=== PATIENT | female | born 1980 | race Caucasian/White ===

== ENCOUNTER → 2016-12-10 | Outpatient (CLI) | payer BC ==
--- NOTE | 2016-12-11 06:49 | US ---
EXAMINATION TYPE: US pelvis complete transvag DATE OF EXAM: 12/10/2016 6:08 PM COMPARISON: Previous study dated 07/04/2013. CLINICAL HISTORY: Pelvic Pain R10.2. Pelvic pain, bloating TECHNIQUE: Transvaginal (TV) and Transabdominal (TA) Date of LMP: 11/16/2016 EXAM MEASUREMENTS: Uterus: 9.5 x 5.0 x 7.0 cm Endometrial Stripe: 1.5 cm Right Ovary: 4.7 x 2.7 x 4.1 cm Left Ovary: 3.4 x 1.9 x 2.8 cm 1. Uterus: Anteverted wnl 2. Endometrium: ?thickened for pt's cycle 3. Right Ovary: Probable hemorrhagic cyst= 2.9 x 2.6 x 3.1 cm 4. Left Ovary: wnl, follicles 5. Bilateral Adnexa: wnl 6. Posterior cul-de-sac: wnl IMPRESSION: 2.9 CM COMPLEX CYST WITHIN THE RIGHT OVARY. SHORT-TERM FOLLOW-UP MAY BE WORTHWHILE.
== END | disposition home or self-care (01) ==
LOC: RADUSMAIN 17:49
PROVIDERS: ATTEND Obstetrics & Gynecology
DX: N83.201 Unspecified ovarian cyst, right side (principal)
CPT/HCPCS: 76830; 76856

== ENCOUNTER 2016-12-28 16:19 | Emergency (ER) | payer BC ==
[2016-12-28 16:32] VITALS: BP 146/86; PULSE 62; RESP 18; TEMP 98.1
--- NOTE | 2016-12-28 16:43 | ED ---
General Adult HPI - General Chief complaint: Back Pain/Injury Stated complaint: Back Pain Time Seen by Provider: 12/28/16 16:33 Source: patient, RN notes reviewed Mode of arrival: ambulatory Limitations: physical limitation - History of Present Illness Initial comments: Patient 36-year-old female who presents emergency room today with a chief complaint of exacerbation of chronic pain. She does admit to having history of problems with her sciatic nerve. She believes she slept wrong. She states having increased pain right side and lower back that radiates on the right leg approximately alf down mid thigh. She denies any bowel or bladder incontinence or retention. Denies any saddle anesthesia. Denies any other complaints associated symptoms. Patient denies any recent fever, chills, shortness of breath, chest pain, abdominal pain, nausea or vomiting, dysuria or hematuria, constipation or diarrhea, headaches or visual changes, or any other complaints. - Related Data Previous Rx's Medication Instructions Recorded traMADol HCl [Ultram] 50 mg PO Q4H PRN #20 tab 05/27/14 Cyclobenzaprine [Flexeril] 10 mg PO TID #20 tab 12/28/16 Dexamethasone 0.75 mg PO DIRECTED #12 tablet 12/28/16 Naproxen 500 mg PO Q12HR 14 Days 12/28/16 Allergies Allergy/AdvReac Type Severity Reaction Status Date / Time Penicillins AdvReac Unknown Verified 12/28/16 16:28 Review of Systems ROS Statement: Those systems with pertinent positive or pertinent negative responses have been documented in the HPI. ROS Other: All systems not noted in ROS Statement are negative. Past Medical History Past Medical History: No Reported History History of Any Multi-Drug Resistant Organisms: None Reported Past Surgical History: Orthopedic Surgery Additional Past Surgical History / Comment(s): MARYANA KNEE; D&C Past Anesthesia/Blood Transfusion Reactions: No Reported Reaction Past Psychological History: No Psychological Hx Reported Smoking Status: Current every day smoker Past Alcohol Use History: None Reported Past Drug Use History: Marijuana Additional Drug Use History / Comment(s): DAILY USE, INSTRUCTED NOT TO USE 24 HOURS PRIOR TO PROCEDURE General Exam - General Exam Comments Initial Comments: General: The patient is awake and alert, in no distress, and does not appear acutely ill. Eye: Pupils are equal, round and reactive to light, extra-ocular movements are intact. No nystagmus. There is normal conjunctiva bilaterally. No signs of icterus. Ears, nose, mouth and throat: There are moist mucous membranes and no oral lesions. Neck: The neck is supple, there is no tenderness or JVD. Cardiovascular: There is a regular rate and rhythm. No murmur, rub or gallop is appreciated. Respiratory: Lungs are clear to auscultation, respirations are non-labored, breath sounds are equal. No wheezes, stridor, rales, or rhonchi. Musculoskeletal: Normal ROM. Normal appearance of thoracic, lumbar spine. No step-offs or is appreciated. Mild tenderness lower lumbar from L3 to L4. Patient does have tenderness over the SI joint on the right. Increased paravertebral tenderness on the right side of the lower lumbar. Strength 5/5. Sensation intact. Pulses equal bilaterally 2+. Neurological: A&O x 3. CN II-XII intact, There are no obvious motor or sensory deficits. Coordination appears grossly intact. Speech is normal. Skin: Skin is warm and dry and no rashes or lesions are noted. Psychiatric: Cooperative, appropriate mood & affect, normal judgment. Limitations: physical limitation Course Vital Signs 12/28/16 16:28 Temperature 98.1 F Pulse Rate 62 Respiratory 18 Rate Blood Pressure 146/86 O2 Sat by Pulse 98 Oximetry Medical Decision Making - Medical Decision Making Patient will be treated with anti-inflammatories, steroids, muscle relaxer. Advised that muscle laxer mainly drowsy. Advised follow-up the family doctor symptoms persist for further evaluation possible MRI. Patient advised return to emergency room if any symptoms increase or worsen or for any other concerns. Disposition Clinical Impression: Acute low back pain Disposition: HOME SELF-CARE Condition: Good Instructions: Acute Low Back Pain (ED) Additional Instructions: Please use medication as discussed. Please be aware the muscle relaxant may make you drowsy. Please follow-up with family doctor in the next 2 days of symptoms have not improved. Please return to emergency room if the symptoms increase or worsen or for any other concerns. Prescriptions: Cyclobenzaprine [Flexeril] 10 mg PO TID #20 tab Dexamethasone 0.75 mg PO DIRECTED #12 tablet Naproxen 500 mg PO Q12HR 14 Days Time of Disposition: 16:42
== END 2016-12-28 16:50 | disposition home or self-care (01) ==
LOC: EC 16:19
DX: M54.5 Low back pain (principal); F17.200 Nicotine dependence, unspecified, uncomplicated; Z88.0 Allergy status to penicillin
CPT/HCPCS: 99283

== ENCOUNTER 2017-01-03 14:43 | Emergency (ER) | payer BC ==
[2017-01-03 15:15] VITALS: BP 122/71; PULSE 83; RESP 18; TEMP 98.3
[2017-01-03] MEDS ORDERED: ORPHENADRINE 30 MG/ML 2 ML VIAL IM STA (15:42)
[2017-01-03] MEDS ORDERED: KETOROLAC 60 MG/2 ML VIAL IM STA (15:42)
--- NOTE | 2017-01-03 15:51 | ED ---
Back Pain HPI - General Chief Complaint: Back Pain/Injury Stated Complaint: back pain Source: patient, RN notes reviewed Limitations: no limitations - History of Present Illness Initial Comments: 36-year-old female presents to the emergency department with the chief complaint back pain. Patient has chronic back pain. Patient states she was seen here a week ago she started on naproxen steroids and Flexeril. Patient states that she continues to have the pain after working in the yard yesterday seemed to worsen so she was concerned. Patient denies any loss of bowel or bladder function. Patient states she went to work and just continues to feel stiff. Patient states she has time to rest from her pain. Patient states is not like her typical pain. There is no loss of bowel or bladder function or no saddle anesthesia. Patient states she was concerned due to the continued pain and the fact that it will worsen so she thought that she should be seen.Patient denies any recent fever, chills, shortness of breath, chest pain, abdominal pain , nausea vomiting, numbness or tingling, dysuria or hematuria, constipation or diarrhea, headaches or visual changes, or any other current symptoms. - Related Data Home Medications Medication Instructions Recorded Confirmed Cyanocobalamin [Vitamin B-12] 500 mcg PO DAILY 01/03/17 01/03/17 Cyclobenzaprine [Flexeril] 10 mg PO TID PRN 01/03/17 01/03/17 Multivit with Calcium,Iron,Min 1 tab PO DAILY 01/03/17 01/03/17 [Women's Multivitamin] Naproxen 500 mg PO Q12HR PRN 01/03/17 01/03/17 Previous Rx's Medication Instructions Recorded Naproxen 500 mg PO Q12HR #20 tab 01/03/17 Orphenadrine [Norflex] 100 mg PO Q12H #10 tablet.er 01/03/17 Allergies Allergy/AdvReac Type Severity Reaction Status Date / Time Penicillins Allergy Unknown Verified 01/03/17 15:40 Review of Systems ROS Statement: Those systems with pertinent positive or pertinent negative responses have been documented in the HPI. ROS Other: All systems not noted in ROS Statement are negative. Past Medical History Past Medical History: No Reported History Additional Past Medical History / Comment(s): chronic back pain History of Any Multi-Drug Resistant Organisms: None Reported Past Surgical History: Orthopedic Surgery Additional Past Surgical History / Comment(s): MARYANA KNEE; D&C Past Anesthesia/Blood Transfusion Reactions: No Reported Reaction Past Psychological History: No Psychological Hx Reported Smoking Status: Current every day smoker Past Alcohol Use History: None Reported Past Drug Use History: Marijuana Additional Drug Use History / Comment(s): DAILY USE, INSTRUCTED NOT TO USE 24 HOURS PRIOR TO PROCEDURE General Exam Limitations: no limitations General appearance: alert, in no apparent distress Head exam: Present: atraumatic, normocephalic, normal inspection Neck exam: Present: normal inspection. Absent: tenderness, meningismus, lymphadenopathy Respiratory exam: Present: normal lung sounds bilaterally. Absent: respiratory distress, wheezes, rales, rhonchi, stridor Cardiovascular Exam: Present: regular rate, normal rhythm, normal heart sounds. Absent: systolic murmur, diastolic murmur, rubs, gallop, clicks Back exam: Present: normal inspection, full ROM. Absent: tenderness, paraspinal tenderness, vertebral tenderness Neurological exam: Present: alert, oriented X3 Skin exam: Present: warm, dry, intact, normal color. Absent: rash Course Vital Signs 01/03/17 15:12 Temperature 98.3 F Pulse Rate 83 Respiratory 18 Rate Blood Pressure 122/71 O2 Sat by Pulse 98 Oximetry Medical Decision Making - Medical Decision Making 36-year-old female presents for flareup of her chronic back pain after lifting in the ER. At this time we discussed will give her Norflex as well as Motrin to help with the pain. We discussed follow-up with a back specialist and to give her on-call or thrill information. Discussed return parameters. Patient stated that she needs. She will be discharged. Disposition Clinical Impression: Acute low back pain Disposition: HOME SELF-CARE Condition: Stable Instructions: Acute Low Back Pain (ED) Additional Instructions: Please use medication as discussed. Please follow up with family doctor if symptoms have not improved over the next two days. Please return to the emergency room if your symptoms increase or worsen or for any other concerns. Prescriptions: Naproxen 500 mg PO Q12HR #20 tab Orphenadrine [Norflex] 100 mg PO Q12H #10 tablet.er Referrals: John Wagoner DO [Primary Care Provider] - 1-2 days Silva Min DO [Doctor of Osteopathic Medicine] - 1-2 days Time of Disposition: 15:50
== END 2017-01-03 16:05 | disposition home or self-care (01) ==
LOC: EC 14:43
DX: M54.5 Low back pain (principal); G89.29 Other chronic pain; F17.200 Nicotine dependence, unspecified, uncomplicated; Z79.899 Other long term (current) drug therapy; Z88.0 Allergy status to penicillin
CPT/HCPCS: 99283; 96372 ×2; J2360; J1885

== ENCOUNTER → 2017-02-05 | Outpatient (CLI) | payer BC ==
[2017-02-05 12:50] LABS: CH 32.1; CHCM 33.5; HCT 40.3 % (34.0-46.0); HDW 2.19; HGB 13.7 gm/dL (11.4-16.0); MCH 32.8 pg (25.0-35.0); MCV 96.2 fL (80.0-100.0); Mean Platelet Volume 7.4; RBC 4.18 m/uL (3.80-5.40); RDW 12.3 % (11.5-15.5); WBC 9.1 k/uL (3.8-10.6)
[2017-02-05 12:53] LABS: Appearance,Urine Clear (Clear); Bilirubin,Urine Negative (Negative); Glucose,Urine (UA) Negative (Negative); Ketones,Urine Negative (Negative); Leukocyte Esterase,Urine Negative (Negative); Nitrite,Urine Negative (Negative); PH, Urine 5.5 (5.0-8.0); Protein,Urine Negative (Negative); Specific Gravity,Urine 1.015 (1.001-1.035); UA Billing (MACRO vs. MICRO) CHEM; Urobilinogen,Urine <2.0 mg/dL (<2.0)
[2017-02-05 13:14] LABS: ALT 19 U/L (9-52); AST 20 U/L (14-36); Alkaline Phosphatase 56 U/L (38-126); Anion Gap 7 mmol/L; Blood Urea Nitrogen 12 mg/dL (7-17); Calcium 9.6 mg/dL (8.4-10.2); Carbon Dioxide 27 mmol/L (22-30); Chloride 107 mmol/L (98-107); Cholesterol 159 mg/dL (<200); Glucose 83 mg/dL (74-99); HDL Cholesterol 77 mg/dL (40-60); Non-African American GFR(MDRD) >60 (>60 ml/min/1.73 sqM); Potassium 4.3 mmol/L (3.5-5.1); Sodium 141 mmol/L (137-145); Total Bilirubin 0.9 mg/dL (0.2-1.3); Total Protein 7.6 g/dL (6.3-8.2); Triglycerides 58 mg/dL (<150)
== END | disposition home or self-care (01) ==
LOC: LABMAIN 12:18
PROVIDERS: ATTEND Family Medicine
DX: Z00.00 Encounter for general adult medical examination without abnormal findings (principal)
CPT/HCPCS: 36415; 80053; 80061; 81003; 84443; 85027

== ENCOUNTER → 2017-04-04 | Outpatient (CLI) | payer BC ==
[2017-04-04 15:01] LABS: Basophils % (A) 0 %; CH 32.2; CHCM 33.2; Eosinophils # (A) 0.1 k/uL (0-0.7); Eosinophils % (A) 2 %; HCT 39.2 % (34.0-46.0); HDW 2.11; Luc # (Auto) 0.13; Luc % (Auto) 2; Lymphocytes # (A) 2.6 k/uL (1.0-4.8); Lymphocytes % (A) 32 %; MCH 32.4 pg (25.0-35.0); MCHC 33.2 g/dL (31.0-37.0); MCV 97.6 fL (80.0-100.0); Mean Platelet Volume 7.8; Monocytes # (A) 0.4 k/uL (0-1.0); Monocytes % (A) 5 %; Neutrophils # (A) 4.8 k/uL (1.3-7.7); Neutrophils % (A) 59 %; RBC 4.02 m/uL (3.80-5.40); RDW 12.8 % (11.5-15.5); WBC 8.1 k/uL (3.8-10.6); WBC (Perox) 8.51
[2017-04-04 15:09] LABS: Anion Gap 8 mmol/L; Blood Urea Nitrogen 18 mg/dL (7-17); Calcium 9.3 mg/dL (8.4-10.2); Carbon Dioxide 27 mmol/L (22-30); Chloride 108 mmol/L (98-107); Glucose 90 mg/dL (74-99); Non-African American GFR(MDRD) >60 (>60 ml/min/1.73 sqM); Sodium 143 mmol/L (137-145)
== END | disposition home or self-care (01) ==
LOC: LABPAT 14:32
PROVIDERS: ATTEND Obstetrics & Gynecology
DX: Z01.812 Encounter for preprocedural laboratory examination (principal)
CPT/HCPCS: 36415; 80048; 85025

== ENCOUNTER 2017-04-11 05:45 | Observation (INO) | payer BC ==
[2017-04-01 14:42] VITALS: BMI 19.9
--- NOTE | 2017-04-10 20:25 | P.HPOB ---
History of Present Illness H&P Date: 04/10/17 Chief Complaint: Uterine prolapse, pelvic pain This is a 36 y.o. female, 7, para 5, who presents for total vaginal hysterectomy with possible posterior colporrhaphy, possible total abdominal hysterectomy with possible bilateral salpingooophorectomy due to pelvic pain with prolapse symptoms. She complains of pelvic pain, dyspareunia, groin pain, and constipation. Her symptoms have worsened for several years now. Pelvic ultrasound showed uterus measuring 8.4 x 5.9 x 4.9 cm. Her left ovary did have a complex mass measuring 4.1 cm. Endometrium measured 1.5 cm. Her right ovary only showed a small simple cyst, but 2 months earlier, she had a complex cyst on the right, and no cyst on the left. She did have a recent colposcopy that did show DEBORAH I. OB Hx: . Hx 5 vaginal deliveries. Hx of [address] [employer] Inspector Hx: No hx STDs. Recent pap showed ASCUS, cannot rule out HGSIL, with neg HR HPV. Colposcopy showed DEBORAH I. Social hx: Single. Factory work. Review of Systems Constitutional: Reports fatigue, Reports weight loss Eyes: denies blurred vision, denies pain Ears, nose, mouth and throat: Denies headache, Denies sore throat Cardiovascular: Denies chest pain, Denies shortness of breath Respiratory: Denies cough Gastrointestinal: Reports constipation Genitourinary: Reports dysmenorrhea, Reports dyspareunia, Reports pelvic pain, Reports prolapse symptoms, Reports stress incontinence (occ) Menstruation: Reports menses 1-7 days Musculoskeletal: Reports low back pain, Reports myalgias Integumentary: Denies pruritus, Denies rash Neurological: Denies numbness, Denies weakness Psychiatric: Reports anxiety, Reports depression, Reports difficulty concentrating, Reports insomnia, Reports irritability Hematologic/Lymphatic: Reports easy bruising Past Medical History Past Medical History: Osteoarthritis (OA) Additional Past Medical History / Comment(s): states "enlarged uterus and precancerous cells present",urinary leakage,chronic back pain History of Any Multi-Drug Resistant Organisms: None Reported Past Surgical History: Orthopedic Surgery Additional Past Surgical History / Comment(s): MARYANA KNEE arthroscopy; D&C Past Anesthesia/Blood Transfusion Reactions: No Reported Reaction Past Psychological History: Anxiety, Depression Smoking Status: Current every day smoker Past Alcohol Use History: Occasional Past Drug Use History: None Reported - Past Family History Mother Family Medical History: No Reported History Father History Unknown: Yes Medications and Allergies Home Medications Medication Instructions Recorded Confirmed Type Naproxen Sod/Diphenhydramine 1 each PO HS 04/01/17 04/11/17 History [Aleve Pm Caplet] Allergies Allergy/AdvReac Type Severity Reaction Status Date / Time Penicillins Allergy Unknown Verified 04/01/17 14:30 Childhood Exam Osteopathic Statement: *. No significant issues noted on an osteopathic structural exam other than those noted in the History and Physical/Consult. HEENT: within normal limits Heart: regular rate and rhythm Lungs: clear to auscultation bilaterally Abdomen: soft, non-tender Pelvic exam: Grade 2 uterine prolapse with uterine tenderness. No adnexal masses palpated, tender bilaterally. Grade 1 rectocele noted. No cystocele. Extremities: Neg. Sarah's. Assessment and Plan (1) Pelvic pain Status: Acute (2) Uterine prolapse Status: Acute Plan: Proceed with total vaginal hysterectomy with possible posterior vaginal colporrhaphy, possible total abdominal hysterectomy with possible bilateral salpingooophorectomy. I have discussed the risks, benefits, and alternative therapies for the above- mentioned procedure and for both sedation/anesthesia as well as necessary blood products administration, if indicated, as they pertain to this patient. The patient has indicated her understanding and acceptance of the risks and procedures discussed.
[~2017-04-11 05:45] MED LIST: DEXAMETHASONE SOD PHOSPHATE 10 MG/ML 1 ML VIAL IV ONE; LACTATED RINGERS 1,000 ML IV SCH; LIDOCAINE 1% 20 ML VIAL (10MG/ML) FOR IV START INTRADERMA PRN; MIDAZOLAM 2 MG/2 ML VIAL IV PRN; ONDANSETRON 4 MG/2 ML VIAL IVP ONE; SCOPOLAMINE 1.5MG/72HR PATCH TRANSDERM ONE; ceFAZolin 2 GM in SODIUM CHLORIDE 0.9% 100 ML IVPB ONE
[2017-04-11] MEDS ORDERED: MIDAZOLAM 2 MG/2 ML VIAL ONE (07:40)
[2017-04-11] MEDS ORDERED: PROPOFOL 10 MG/ML 20 ML VIAL IV ONE (07:40)
[2017-04-11] MEDS ORDERED: KETOROLAC 30 MG/ML 1 ML VIAL ONE (07:40)
[2017-04-11] MEDS ORDERED: fentaNYL (PF) 50 MCG/ML 2 ML AMP ONE (07:40)
[2017-04-11] MEDS ORDERED: BACITRACIN 500 UNIT/GM OINT 28.4 GM TUBE TOPICAL ONE (08:09)
[2017-04-11] MEDS ORDERED: EPINEPHrine 1 MG/ML 1 ML AMP IV ONE (08:09)
--- NOTE | 2017-04-11 08:50 | P.OP ---
Date of Procedure: 04/11/17 Preoperative Diagnosis: Pelvic pain, uterine prolapse Postoperative Diagnosis: Same Procedure(s) Performed: Total vaginal hysterectomy Implants: Anesthesia: spinal (Duramorph) Surgeon: Gail Ivory Feltmaker #1: Valeriano Bustamante Estimated Blood Loss (ml): 100 Pathology: other (Uterus with cervix) Condition: stable Disposition: floor Indications for Procedure: This is a 36 y.o. female, 7, para 5, who presents for total vaginal hysterectomy with possible posterior colporrhaphy, possible total abdominal hysterectomy with possible bilateral salpingooophorectomy due to pelvic pain with prolapse symptoms. She complains of pelvic pain, dyspareunia, groin pain, and constipation. Her symptoms have worsened for several years now. Pelvic ultrasound showed uterus measuring 8.4 x 5.9 x 4.9 cm. Her left ovary did have a complex mass measuring 4.1 cm. Endometrium measured 1.5 cm. Her right ovary only showed a small simple cyst, but 2 months earlier, she had a complex cyst on the right, and no cyst on the left. She did have a recent colposcopy that did show DEBORAH I. Operative Findings: Approximately grade 2 uterine prolapse is noted. No upper she will cystocele or rectocele was noted after removal of the uterus. The right ovary was visualized and did have a small simple-appearing cyst noted. The left ovary was not completely visualized but by palpation no masses were palpated. Uterus was average size with no visible fibroids. Description of Procedure: The patient is taken the operating room where she is placed in the dorsal lithotomy position. She is prepped and draped in the normal sterile fashion. Next a weighted speculum was placed in the patient's vagina and a right angle retractor was used to visualize the cervix. The anterior lip of the cervix is grasped with a single-tooth tenaculum. Next the cervix was circumferentially injected with one amp of epinephrine to 150 mL of normal saline. Next the cervix was circumscribed with a scalpel. The vaginal mucosa was pushed away from the cervix with a sponge. Next the uterosacral ligaments are clamped on either side with a Misti clamp, cut with Cedeno scissors, and then sutured with 0 Vicryl suture in a Misti transfixion stitch and then held on either side with a straight hemostat. Next the posterior peritoneal reflection was identified and entered sharply with Cedeno scissors. The edges of the vaginal mucosa was then tagged with 0 Vicryl suture and held with a curved hemostat for identification. Next a longbilled weighted speculum was placed through the posterior peritoneal reflection. Next the cardinal ligaments were clamped on either side with Misti clamps, cut with Cedeno scissors, and then sutured with 0 Vicryl suture in Misti transfixion stitches and cut. Next the vesicouterine peritoneum reflection is identified and entered sharply with Metzenbaum scissors. A right angle bladder retractor is then used to retract the bladder. The uterine arteries are clamped on either side with Misti clamps, cut with Cedeno scissors, and then sutured with 0 Vicryl suture in Misti transfixion stitches. The round ligament is also clamped on either side with a Misti clamp , cut with Cedeno scissors, and sutured with 0 Vicryl suture in Misti transfixion stitches. Next the uterine ovarian ligament and tube were clamped on either side with a Misti clamp, cut with Cedeno scissors, and then sutured with 0 Vicryl suture in a [id number] stitch, flashed, and then free tied with another suture of 0 Vicryl suture. These pedicles were held with a straight Cici for identification. The uterus is removed from the field. Excellent hemostasis is noted. Next the peritoneum is closed with 0 Vicryl suture in a pursestring fashion incorporating all the held ligaments. Both tubes are visualized and appeared normal. The right ovary is visualized and appears slightly enlarged with a simple-appearing cyst. The Bovie was used to open up the cyst and drain it with clear straw fluid noted. The left ovary was not visualized however with palpation with fingers no masses were noted. Next the uterine ovarian ligaments are tied together in the middle and cut. The vaginal mucosa is then sutured with 0 Vicryl suture in a running locked fashion. The uterosacral ligaments were also tied together in the midline prior to completely closing the vaginal cuff. Excellent hemostasis is noted. No appreciable cystocele or rectocele is noted at this time. The Mahoney catheter is inserted and clear urine is noted. Next the vagina is packed with one-inch iodoform gauze with bacitracin ointment. All sponge and needle counts are correct and the patient is then taken to recovery room in stable condition.
[2017-04-11] MEDS ORDERED: diphenhydrAMINE 50 MG/ML 1 ML VIAL IVP ONE (09:24)
[2017-04-11] MEDS: HYDROmorphone 1 MG/ML 1 ML SYRINGE IVP PRN ×2 (09:31→10:10)
[2017-04-11] MEDS ORDERED: MORPHINE SULFATE 4 MG/ML SYRINGE IVP PRN (09:45)
[2017-04-11] MEDS ORDERED: NALOXONE 0.4 MG/ML 1 ML VIAL IV PRN (09:45)
[2017-04-11] MEDS ORDERED: NALBUPHINE 10 MG/ML AMPUL IV PRN (09:45)
[2017-04-11] MEDS ORDERED: Acetaminophen-Codeine 300-30mg TAB PO PRN ×2 (10:22)
[2017-04-11] MEDS ORDERED: SIMETHICONE 80 MG CHEWABLE PO PRN (10:22)
[2017-04-11] MEDS ORDERED: diphenhydrAMINE 50 MG/ML 1 ML VIAL IVP PRN (10:22)
[2017-04-11] MEDS ORDERED: ONDANSETRON 4 MG/2 ML VIAL IVP PRN (10:22)
[2017-04-11] MEDS ORDERED: METOCLOPRAMIDE 5 MG/ML 2 ML VIAL IVP PRN (10:22)
[2017-04-11] MEDS: LACTATED RINGERS 1,000 ML IV SCH (11:27)
[2017-04-11] MEDS: SENNOSIDES-DOCUSATE SODIUM 1 EACH TAB PO SCH ×2 (11:29→21:00)
[2017-04-11] MEDS: MORPHINE SULFATE 4 MG/ML SYRINGE IVP PRN ×4 (12:07→23:55)
[2017-04-11] MEDS: KETOROLAC 30 MG/ML 1 ML VIAL IVP PRN (14:46)
[2017-04-11] MEDS: ONDANSETRON 4 MG/2 ML VIAL IVP PRN (18:33)
[2017-04-11] MEDS: ZOLPIDEM 5 MG TAB PO PRN (20:08)
[2017-04-12] MEDS: ONDANSETRON 4 MG/2 ML VIAL IVP PRN (00:33)
[2017-04-12] MEDS: LACTATED RINGERS 1,000 ML IV SCH ×2 (04:00→11:43)
[2017-04-12] MEDS: MORPHINE SULFATE 4 MG/ML SYRINGE IVP PRN (05:34)
[2017-04-12] MEDS: KETOROLAC 30 MG/ML 1 ML VIAL IVP PRN (06:06)
[2017-04-12] MEDS ORDERED: ACETAMINOPHEN TAB 325 MG TAB PO PRN (07:40)
[2017-04-12] MEDS: SENNOSIDES-DOCUSATE SODIUM 1 EACH TAB PO SCH ×2 (07:42→20:36)
[2017-04-12 07:48] LABS: Basophils % (A) 0 %; CH 31.8; CHCM 32.5; Eosinophils # (A) 0.1 k/uL (0-0.7); Eosinophils % (A) 1 %; HCT 21.2 % (34.0-46.0); HDW 2.11; Luc # (Auto) 0.17; Luc % (Auto) 1; Lymphocytes # (A) 2.7 k/uL (1.0-4.8); Lymphocytes % (A) 22 %; MCH 32.1 pg (25.0-35.0); MCHC 32.6 g/dL (31.0-37.0); MCV 98.3 fL (80.0-100.0); Mean Platelet Volume 7.9; Monocytes # (A) 0.7 k/uL (0-1.0); Monocytes % (A) 6 %; Neutrophils # (A) 8.7 k/uL (1.3-7.7); Neutrophils % (A) 71 %; RBC 2.16 m/uL (3.80-5.40); RDW 12.7 % (11.5-15.5); WBC 12.4 k/uL (3.8-10.6); WBC (Perox) 12.41
[2017-04-12 07:55] LABS: HGB 6.9 gm/dL (11.4-16.0)
--- NOTE | 2017-04-12 09:01 | P.PN ---
Subjective Principal diagnosis: Status post total vaginal hysterectomy postoperative day #1 Patient has been doing okay. She did have some breakthrough pain and anesthesia did order some morphine IV. She did have a Duramorph spinal anesthetic. She has been ambulating. She denies any heavy bleeding. She did urinate once this morning but did not get it in the hat. She has been ambulating without difficulty. She denies any dizziness or lightheadedness. She denies any shortness of breath. She did have some chest discomfort yesterday but the morphine did help with that. It has improved since she's been walking this morning. She is passing flatus and tolerating regular diet. Objective - Vital Signs Vital signs: Vital Signs Temp 97.5 F L 04/12/17 07:00 Pulse 60 04/12/17 07:00 Resp 18 04/12/17 07:00 BP 88/43 04/12/17 07:00 Pulse Ox 97 04/12/17 07:00 Intake & Output 04/11/17 04/12/17 04/12/17 18:59 06:59 18:59 Intake Total 1100 950 Output Total 500 550 Balance 600 400 Weight 53.524 kg Intake: IV 1100 Intake, IV Titration 950 Amount Lactated Ringers 1,000 ml 950 @ 100 mls/hr IV .Q10H [facility] Rx#:[id number] Output: Urine 400 550 Uretheral (Mahoney) 400 550 Estimated Blood Loss 100 Other: Voiding Method Indwelling Catheter Indwelling Catheter - Constitutional General appearance: Present: no acute distress - Gastrointestinal General gastrointestinal: Present: normal bowel sounds, soft. Absent: distended , tenderness - Genitourinary Genitourinary Comment(s): Scant serosanguineous discharge is noted on her katt-pad. - Psychiatric Psychiatric: Present: A&O x's 3 - Labs CBC & Chem 7: 04/12/17 06:43 Labs: Abnormal Lab Results - Last 24 Hours (Table) 04/12/17 Range/Units 06:43 WBC 12.4 H (3.8-10.6) k/uL RBC 2.16 L (3.80-5.40) m/uL Hgb 6.9 L* D (11.4-16.0) gm/dL Hct 21.2 L (34.0-46.0) % Neutrophils # 8.7 H (1.3-7.7) k/uL Assessment and Plan (1) Pelvic pain Status: Acute (2) Uterine prolapse Status: Acute Plan: Impression is status post total vaginal hysterectomy postoperative day #1. Plan is to observe her vital signs this morning and repeat CBC at noon time today. If her hemoglobin is stable and she is asymptomatic, she may be a little go home later today. She does state that she did have a period right after her preop CBC was drawn. She does have heavy periods. She also does state she has a history of anemia.
[2017-04-12] MEDS ORDERED: HYDROcodone/APAP 5-325MG 1 EACH TAB PO PRN (10:48)
[2017-04-12 11:29] LABS: Basophils % (A) 0 %; CH 32.1; CHCM 32.9; Eosinophils # (A) 0.2 k/uL (0-0.7); Eosinophils % (A) 1 %; HCT 21.4 % (34.0-46.0); HDW 2.08; Luc # (Auto) 0.13; Luc % (Auto) 1; Lymphocytes # (A) 3.2 k/uL (1.0-4.8); Lymphocytes % (A) 27 %; MCH 31.7 pg (25.0-35.0); MCHC 32.4 g/dL (31.0-37.0); MCV 97.8 fL (80.0-100.0); Mean Platelet Volume 8.5; Monocytes # (A) 0.6 k/uL (0-1.0); Monocytes % (A) 5 %; Neutrophils # (A) 7.7 k/uL (1.3-7.7); Neutrophils % (A) 65 %; RBC 2.19 m/uL (3.80-5.40); RDW 13.1 % (11.5-15.5); WBC 11.7 k/uL (3.8-10.6); WBC (Perox) 12.31
[2017-04-12] MEDS ORDERED: NICOTINE 21MG/24HR PATCH TRANSDERM SCH (11:30)
[2017-04-12 11:34] LABS: HGB 6.9 gm/dL (11.4-16.0)
[2017-04-12] MEDS: IBUPROFEN 600 MG TAB PO PRN ×2 (11:47→17:54)
--- NOTE | 2017-04-12 12:58 | P.PN ---
Progress Note - Text I was called earlier today with patient complaints of chest pressure and unrelieved abdominal pain. She had just received a Tylenol 3 one hour before this time. I did order a cardiology consult. I also changed her prescription from Tylenol No. 3 to [place]. When I saw her at noon time, she was feeling better. She did state her abdominal pain was throughout her abdomen and sometimes worse when she was laying flat. She did state it was better at this time. She does state that she feels that her chest pain was more due to some anxiety and she has used Xanax in the past for this. I did order some Xanax to use as needed. Will await cardiology consult. Her CBC does show her hemoglobin is stable at this point. Will work on pain control by switching to [place] and alternating with ibuprofen.
[2017-04-12] MEDS: ALPRAZolam 0.25 MG TAB PO PRN ×2 (13:01→20:36)
--- NOTE | 2017-04-12 14:02 | P.CRDCN ---
History of Present Illness Consult date: 04/12/17 History of present illness: 36-year-old female who underwent vaginal hysterectomy yesterday. Post procedure patient was complaining of chest discomfort which was increasing on deep breathing and going to the right shoulder area. Patient was given morphine with relief of pain and EKGs did not reveal any acute changes. She claims today the pain is better. Pain seemed to be helped by pain medications. She doesn't seem to be in acute distress. She doesn't have any history of previous cardiac problems. She doesn't have and high blood pressure, diabetes, hypercholesterolemia. She is a smoker. No family history of coronary artery disease. One set of cardiac enzymes within normal limits. Echocardiogram showed normal LV function. However, there appears to be right-sided pleural effusion. We're planning to get a chest x-ray. Her chest pains appear to be noncardiac. At this point, no further cardiac workup is suggested. If chest x- ray shows effusion or abnormality, pulmonary consult may be requested Review of Systems As per the chart Past Medical History Past Medical History: Osteoarthritis (OA) Additional Past Medical History / Comment(s): states "enlarged uterus and precancerous cells present",urinary leakage,chronic back pain History of Any Multi-Drug Resistant Organisms: None Reported Past Surgical History: Hysterectomy, Orthopedic Surgery Additional Past Surgical History / Comment(s): MARYANA KNEE arthroscopy; D&C. 04/11 vaginal hysterectomy Past Anesthesia/Blood Transfusion Reactions: No Reported Reaction Past Psychological History: Anxiety, Depression Additional Psychological History / Comment(s): No current Rx needed Smoking Status: Current every day smoker Past Alcohol Use History: Occasional Additional Past Alcohol Use History / Comment(s): started smoking at age 15,1ppd Past Drug Use History: None Reported Additional Drug Use History / Comment(s): DAILY USE, INSTRUCTED NOT TO USE 24 HOURS PRIOR TO PROCEDURE - Past Family History Mother Family Medical History: No Reported History Father History Unknown: Yes Medications and Allergies Home Medications Medication Instructions Recorded Confirmed Type Naproxen Sod/Diphenhydramine 1 tab PO HS 04/01/17 04/11/17 History [Aleve Pm Caplet] Allergies Allergy/AdvReac Type Severity Reaction Status Date / Time Penicillins Allergy Unknown Verified 04/11/17 11:42 Childhood Physical Exam Vitals: Vital Signs Temp Pulse Pulse Pulse Resp BP BP 04/12/17 11:42 98.1 F 60 20 116/58 04/12/17 10:25 60 16 101/53 04/12/17 07:00 97.5 F L 60 18 88/43 84/44 04/12/17 04:00 98.9 F 62 18 100/50 04/12/17 03:00 64 16 04/12/17 01:00 60 16 04/11/17 23:10 97.9 F 64 16 96/59 04/11/17 20:15 98.3 F 56 L 16 96/51 04/11/17 19:00 96.8 F L 60 18 95/59 04/11/17 16:59 04/11/17 16:56 97.4 F L 61 16 100/61 04/11/17 15:24 58 L 16 04/11/17 15:00 04/11/17 14:48 58 L 16 99/57 Pulse Ox 04/12/17 11:42 100 04/12/17 10:25 98 04/12/17 07:00 97 04/12/17 04:00 97 04/12/17 03:00 97 04/12/17 01:00 98 04/11/17 23:10 97 04/11/17 20:15 98 04/11/17 19:00 100 04/11/17 16:59 96 04/11/17 16:56 96 04/11/17 15:24 04/11/17 15:00 97 04/11/17 14:48 97 Intake and Output 04/11/17 04/12/17 04/12/17 22:59 06:59 14:59 Intake Total 950 Output Total 400 550 Balance -400 400 Intake: Intake, IV Titration 950 Amount Lactated Ringers 1,000 ml 950 @ 100 mls/hr IV .Q10H [facility] Rx#:[id number] Output: Urine 400 550 Uretheral (Mahoney) 400 550 Other: Voiding Method Indwelling Catheter Indwelling Catheter GENERAL EXAM: Patient is alert and oriented and doesn't appear to be in any acute distress HEENT: Normocephalic. Normal reaction of pupils, equal size, normal range of extraocular motion. No erythema or exudates in the throat. NECK: No masses, no nuchal rigidity. CHEST: No chest wall deformity. LUNGS: Diminished breath sounds at bases HEART: S1 and S2 normal with no audible mumurs or gallops. Regular rhythm, femorals equal on both sides.. ABDOMEN: No hepatosplenomegaly, normal bowel sounds, no guarding or rigidity. SKIN: No rashes CENTRAL NERVOUS SYSTEM: No focal deficits. EXTREMITIES: No cyanosis, clubbing or edema. Results 04/12/17 11:15 Cardiac Enzymes 04/12/17 Range/Units 11:15 Troponin I 0.014 (0.000-0.034) ng/mL CBC 04/12/17 04/12/17 Range/Units 06:43 11:15 WBC 12.4 H 11.7 H (3.8-10.6) k/uL RBC 2.16 L 2.19 L (3.80-5.40) m/uL Hgb 6.9 L* D 6.9 L* (11.4-16.0) gm/dL Hct 21.2 L 21.4 L (34.0-46.0) % Plt Count 188 188 (150-450) k/uL Current Medications Generic Name Dose Route Start Last Admin Trade Name Freq PRN Reason Stop Dose Admin Hydrocodone Bitart/Acetaminophen 1 each 04/12/17 10:48 [place] 5-325 PO Q4HR PRN Pain Hydrocodone Bitart/Acetaminophen 2 each 04/12/17 10:50 [place] 5-325 PO Q4HR PRN Pain Alprazolam 0.25 mg 04/12/17 12:55 04/12/17 13:01 Xanax PO 0.25 mg TID PRN Administration Anxiety Diphenhydramine HCl 25 mg 04/11/17 10:22 Benadryl IVP Q6HR PRN Itching Lactated Ringer's 1,000 mls @ 100 mls/hr 04/11/17 10:22 04/12/17 11:43 Lactated Ringers IV 100 mls/hr .Q10H [facility]OGANY Administration Ibuprofen 600 mg 04/11/17 10:22 04/12/17 11:47 Motrin PO 600 mg Q6HR PRN Administration Mild Discomfort Ketorolac Tromethamine 30 mg 04/11/17 10:22 04/12/17 06:06 Toradol IVP 04/13/17 10:23 30 mg Q6HR PRN Administration Moderate Pain Metoclopramide HCl 10 mg 04/11/17 10:22 04/11/17 19:45 Reglan IVP 10 mg Q6HR PRN Administration Nausea or Vomiting Morphine Sulfate 3 mg 04/11/17 11:52 04/12/17 05:34 Morphine Sulfate (Inj) IVP 3 mg Q4HR PRN Administration Severe Pain Nalbuphine HCl 2.5 mg 04/11/17 09:45 04/11/17 09:48 Nubain IV 2.5 mg Q4HR PRN Administration Itching Naloxone HCl 0.2 mg 04/11/17 09:45 Narcan IV Q2M PRN Opioid Reversal Nicotine 1 patch 04/12/17 11:30 04/12/17 11:43 Habitrol 21mg/24hr Patch TRANSDERM 1 patch DAILY MAHOGANY Administration Ondansetron HCl 4 mg 04/11/17 10:22 Zofran IVP Q8HR PRN Nausea And Vomiting Senna/Docusate Sodium 2 each 04/11/17 10:22 04/12/17 07:42 Senokot-S PO 2 each BID MAHOGANY Administration Simethicone 80 mg 04/11/17 10:22 Mylicon Chew PO ACHS PRN Bloating Zolpidem Tartrate 5 mg 04/11/17 10:22 04/11/17 20:08 Ambien PO 5 mg HS PRN Administration Insomnia Intake and Output 04/11/17 04/12/17 04/12/17 22:59 06:59 14:59 Intake Total 950 Output Total 400 550 Balance -400 400 Intake: Intake, IV Titration 950 Amount Lactated Ringers 1,000 ml 950 @ 100 mls/hr IV .Q10H [facility] Rx#:[id number] Output: Urine 400 550 Uretheral (Mahoney) 400 550 Other: Voiding Method Indwelling Catheter Indwelling Catheter 04/12/17 11:15 EKG Interpretations (text) Sinus rhythm Assessment and Plan (1) History of total vaginal hysterectomy Status: Acute (2) Chest pain Status: Acute (3) Anemia Status: Acute Plan: Patient chest pain, has pleuritic qualities and is relieved with pain medication. EKG did not reveal any acute changes. Cardiac enzymes are negative and echo Cardigan showed normal LV function. Patient's pulmonary artery pressure also within normal limits. I do not think pains are cardiac in nature. However, on the echo study, there appears to be possible right-sided pleural effusion. I recommend a chest x-ray. If there is any effusion, pulmonary consult may be requested. Computed tomography scan of the chest and abdomen also may be considered because of unexplained anemia.
--- NOTE | 2017-04-12 14:33 | XR ---
EXAMINATION TYPE: XR chest 2V DATE OF EXAM: 04/12/2017 COMPARISON: NONE HISTORY: Shortness of breath TECHNIQUE: Frontal and lateral views of the chest are obtained. FINDINGS: Lucency noted beneath the right hemidiaphragm. No pneumothorax or pleural effusion. Cardia c mediastinal silhouette, pulmonary vascularity and osmany within normal limits. IMPRESSION: Pneumoperitoneum likely is postoperative. Follow-up as indicated.
[2017-04-12] MEDS: HYDROcodone/APAP 5-325MG 1 EACH TAB PO PRN ×2 (15:47→21:56)
[2017-04-12 22:45] VITALS: RESP 16
[2017-04-13] MEDS: IBUPROFEN 600 MG TAB PO PRN (02:40)
[2017-04-13] MEDS: HYDROcodone/APAP 5-325MG 1 EACH TAB PO PRN ×2 (04:02→09:42)
[2017-04-13] MEDS: ZOLPIDEM 5 MG TAB PO PRN (04:05)
[2017-04-13 07:15] LABS: Basophils % (A) 0 %; CH 31.9; CHCM 32.6; Eosinophils # (A) 0.2 k/uL (0-0.7); Eosinophils % (A) 3 %; HDW 2.15; Luc # (Auto) 0.13; Luc % (Auto) 2; Lymphocytes # (A) 2.9 k/uL (1.0-4.8); Lymphocytes % (A) 38 %; MCH 32.3 pg (25.0-35.0); MCHC 32.9 g/dL (31.0-37.0); MCV 98.3 fL (80.0-100.0); Mean Platelet Volume 7.6; Monocytes # (A) 0.5 k/uL (0-1.0); Monocytes % (A) 7 %; Neutrophils # (A) 3.9 k/uL (1.3-7.7); Neutrophils % (A) 51 %; RBC 1.86 m/uL (3.80-5.40); RDW 12.8 % (11.5-15.5); WBC 7.7 k/uL (3.8-10.6); WBC (Perox) 7.89
[2017-04-13 07:25] LABS: HCT 18.2 % (34.0-46.0)
--- NOTE | 2017-04-13 08:50 | P.DS ---
Providers Date of admission: 04/11/17 16:53 Expected date of discharge: 04/13/17 Attending physician: Gail Ivory Consults: 04/12/17 10:37 Consult Physician Urgent Consulting Provider: [facility] Consult Reason/Comments: chest pressure Do you want consulting provider notified?: Yes Primary care physician: John Wagoner - Discharge Diagnosis(es) (1) Pelvic pain Current Visit: Yes Status: Acute (2) Uterine prolapse Current Visit: Yes Status: Acute Hospital Course: A 36-year-old female who underwent a total vaginal hysterectomy on 04/11/2017. Postoperatively she did have some issues with pain control. She did have a Duramorph spinal but did require some extra doses of IV morphine. She was tried on oral Tylenol 3 which did not work for her and therefore she was switched [place] which is working better. She is alternating with ibuprofen. She is passing flatus and bowel movement. She did have episodes of some chest discomfort and chest pain for which cardiology was consulted and workup was negative for cardiac events. It was determined that some of this may have been related to some anxiety. She did have postoperative anemia with a hemoglobin of 6.9 which did stay stable throughout her admission. Her final hemoglobin was 6.0 and she is asymptomatic regarding this anemia. Vital signs are stable. Abdomen is soft with positive bowel sounds 4. Claire-pad shows no bleeding at this time. Extremities show negative Homans. Impression is status post total vaginal hysterectomy postoperative day #2. Plan is to discharge home today. She will be given prescriptions for ibuprofen and [place]. She is advised to take Slow Fe daily. She is advised to follow up in the office in 1 week for a postoperative check. Routine postoperative instructions are given. She is advised to call the office if she has any further questions or concerns prior to her appointment time. Procedures: Total vaginal hysterectomy on 04/11/2017 Patient Condition at Discharge: Stable Plan - Discharge Summary New Discharge Prescriptions: New HYDROcodone/APAP 5-325MG [[place] 5-325] 1 each PO Q4HR PRN #30 tab PRN Reason: Pain Ibuprofen [Motrin] 600 mg PO Q6HR PRN #60 tab PRN Reason: Mild Discomfort Discontinued Naproxen Sod/Diphenhydramine [Aleve Pm Caplet] 1 tab PO HS Discharge Medication List HYDROcodone/APAP 5-325MG [[place] 5-325] 1 each PO Q4HR PRN #30 tab 04/13/17 [Rx] Ibuprofen [Motrin] 600 mg PO Q6HR PRN #60 tab 04/13/17 [Rx] Follow up Appointment(s)/Referral(s): Gail Ivory DO [Doctor of Osteopathic Medicine] - 1 Week Activity/Diet/Wound Care/Special Instructions: Diet as tolerated. May shower, but no tub baths for 1 week. No intercourse for 6 weeks. No heavy lifting. Discharge Disposition: HOME SELF-CARE
[2017-04-13 10:09] VITALS: BP 120/77; PULSE 69; TEMP 97.4
--- NOTE | 2017-04-15 12:31 | ECHOF ---
Referral Reason:chest pressure MEASUREMENTS -------- HEIGHT: 162.6 cm WEIGHT: 53.5 kg BP: 120/60 RVIDd: 2.7 cm (< 3.3) IVSd: 0.7 cm (0.6 - 1.1) LVIDd: 4.3 cm (3.9 - 5.3) LVPWd: 0.9 cm (0.6 - 1.1) IVSs: 1.0 cm LVIDs: 2.8 cm LVPWs: 1.2 cm LA Diam: 3.0 cm (2.7 - 3.8) LAESV Index (A-L): 26.25 ml/m MV EXCURSION: 18.547 mm (> 18.000) MV EF SLOPE: 84 mm/s (70 - 150) EPSS: 0.2 cm MV E Momo: 1.03 m/s MV DecT: 202 ms MV A Momo: 0.74 m/s MV E/A Ratio: 1.40 RAP: 5.00 mmHg RVSP: 21.85 mmHg FINDINGS -------- Sinus rhythm. This was a technically good study. LV size, wall thickness and systolic function are normal, with an EF greater than 55%. there is evidence of pneumoperitonium. The right ventricle is normal in size. Normal LA size by volume 22+/-6 ml/m2. The right atrial size is normal. The aortic valve is trileaflet, and appears structurally normal. No aortic stenosis or regurgitation. Mild mitral regurgitation is present. Mild tricuspid regurgitation present. Right ventricular systolic pressure is normal at < 35 mmHg. There is no evidence of pulmonary hypertension. There is no pulmonic regurgitation present. The aortic root size is normal. There is no pericardial effusion. CONCLUSIONS -------- 1. LV size, wall thickness and systolic function are normal, with an EF greater than 55%. 2. there is evidence of pneumoperitonium. 3. Mild mitral regurgitation is present. 4. Mild tricuspid regurgitation present. 5. Right ventricular systolic pressure is normal at < 35 mmHg. 6. There is no evidence of pulmonary hypertension. SOLUTIONS DEVELOPER: Juanita Solis RDCS
== END 2017-04-13 10:36 | disposition home or self-care (01) ==
LOC: UNDOADMIN 05:45 → 2ORWHC 05:45 → ORWHC2ENDO 05:45 → EDSTATUS 07:30 → 6PED 08:49 → ORWHC2ENDO 16:52 → 6PED 16:53
PROVIDERS: ADMIT Obstetrics & Gynecology; ATTEND Obstetrics & Gynecology
DX: N81.2 Incomplete uterovaginal prolapse (principal); N87.0 Mild cervical dysplasia; D64.9 Anemia, unspecified; M19.90 Unspecified osteoarthritis, unspecified site; F41.9 Anxiety disorder, unspecified; F32.9 Major depressive disorder, single episode, unspecified; N83.201 Unspecified ovarian cyst, right side; N39.3 Stress incontinence (female) (male); M54.9 Dorsalgia, unspecified; G89.29 Other chronic pain; N94.10 Unspecified dyspareunia; F17.200 Nicotine dependence, unspecified, uncomplicated; K59.00 Constipation, unspecified; R07.89 Other chest pain; Z88.0 Allergy status to penicillin; Z79.1 Long term (current) use of non-steroidal anti-inflammatories (NSAID)
CPT/HCPCS: 94760; 93306; 93005; 81025; 84484; 85025 ×2; 88307; 71020; 58260; G0378 ×3; S4990; J2250; J0171; J2270 ×2; J1200; J1100; J2300; J2765; J0690; J2405 ×2; J3010; J1885 ×2; J1170; J2704; 86850; 86900; 86901

== ENCOUNTER 2018-04-03 15:30 | Emergency (ER) | payer BC ==
[2018-04-03 15:56] VITALS: RESP 18; TEMP 98.2
[2018-04-03] MEDS ORDERED: SODIUM CHLORIDE 0.9% 1,000 ML IV STA (16:18)
--- NOTE | 2018-04-03 16:20 | ED ---
Female Urogenital HPI - General Chief complaint: Urogenital Stated complaint: UTI Time Seen by Provider: 04/03/18 16:11 Source: patient, RN notes reviewed Mode of arrival: ambulatory Limitations: no limitations - History of Present Illness Initial comments: This is a 37-year-old female who presents to the emergency department with chief complaint of possible urinary tract infection. Patient states that on Tuesday she was seen at [facility]. She states that she was diagnosed with the urinary tract infection and was started on Bactrim. She she states that she was starting to feel better but then today her symptoms worsened. She states that she has generalized burning in her abdomen. She reports nausea but denies vomiting. Reports diarrhea. Denies fevers or chills, chest pain or shortness of breath. She states that she does have increased urinary frequency , however denies dysuria or hematuria. - Related Data Home Medications Medication Instructions Recorded Confirmed D-Methorphan/PE/Acetaminophen 1 cap PO Q4HR PRN 04/03/18 04/03/18 [Vicks Dayquil Liquicaps] Sulfamethox-Tmp 800-160Mg [Bactrim 1 tab PO BID 04/03/18 04/03/18 DS 800-160 mg] Allergies Allergy/AdvReac Type Severity Reaction Status Date / Time Penicillins Allergy Rash/Hives Verified 04/03/18 16:07 Review of Systems ROS Statement: Those systems with pertinent positive or pertinent negative responses have been documented in the HPI. ROS Other: All systems not noted in ROS Statement are negative. Past Medical History Past Medical History: Osteoarthritis (OA) Additional Past Medical History / Comment(s): states "enlarged uterus and precancerous cells present",urinary leakage,chronic back pain History of Any Multi-Drug Resistant Organisms: None Reported Past Surgical History: Hysterectomy, Orthopedic Surgery Additional Past Surgical History / Comment(s): MARYANA KNEE arthroscopy; D&C. 04/11 vaginal hysterectomy Past Anesthesia/Blood Transfusion Reactions: No Reported Reaction Past Psychological History: Anxiety, Depression Smoking Status: Current every day smoker Past Alcohol Use History: Rare Past Drug Use History: Marijuana - Past Family History Mother Family Medical History: No Reported History Father History Unknown: Yes General Exam - General Exam Comments Initial Comments: General: Awake and alert, well-developed; in no apparent distress. Does not appear acutely ill. HEENT: Head atraumatic, normocephalic. Pupils are equal, round and reactive to light. Extraocular movements intact. Oropharynx moist without erythema or exudate. Neck: Supple. Normal ROM. Cardiovascular: Regular rate and rhythm. No murmurs, rubs or gallops. Chest symmetrical. Respiratory: Lungs clear to auscultation bilaterally. No wheezes, rales or rhonchi. Normal respiratory effort with no use of accessory muscles. Abdomen: Soft, non-tender, non-distended. No rigidity, rebound or guarding. Normal bowel sounds in all 4 quadrants. Musculoskeletal: Normal ROM, no tenderness bilateral upper and lower extremities. Ambulating normally. Skin: [place], warm and dry without rashes or lesions. Neurological: Alert and oriented x3. CN II-XII grossly intact. Speech is fluent and answers are appropriate. No focal neuro deficits. Psychiatric: Normal mood and affect. No overt signs of depression or anxiety noted. Limitations: no limitations Course Vital Signs 04/03/18 15:52 Temperature 98.2 F Pulse Rate 79 Respiratory 18 Rate Blood Pressure 134/78 O2 Sat by Pulse 100 Oximetry Medical Decision Making - Medical Decision Making This is a 37-year-old female who presents to the emergency department with chief complaint of UTI. Patient has been taking Bactrim for a urinary tract infection that was diagnosed on Tuesday. Patient states that she feels her symptoms have worsened today. She reports urinary frequency and abdominal burning. Abdomen is soft and non-tender. CBC and CMP were unremarkable. UA revealed no evidence for infection. I recommended the patient complete her course of antibiotics. Recommended following up with her primary care provider if no improvement in symptoms after finishing course of antibiotics. Patient is in agreement with plan and voices understanding. Vital signs are stable and she is in no acute distress. She will be discharged home at this time. All questions answered. - Lab Data Result diagrams: 04/03/18 16:35 04/03/18 16:35 Lab Results 04/03/18 04/03/18 04/03/18 Range/Units 16:22 16:35 16:35 WBC 6.6 (3.8-10.6) k/uL RBC 3.97 (3.80-5.40) m/uL Hgb 12.7 (11.4-16.0) gm/dL Hct 37.3 (34.0-46.0) % MCV 94.0 (80.0-100.0) fL MCH 31.9 (25.0-35.0) pg MCHC 33.9 (31.0-37.0) g/dL RDW 12.6 (11.5-15.5) % Plt Count 254 (150-450) k/uL Neutrophils % 61 % Lymphocytes % 30 % Monocytes % 6 % Eosinophils % 1 % Basophils % 0 % Neutrophils # 4.0 (1.3-7.7) k/uL Lymphocytes # 2.0 (1.0-4.8) k/uL Monocytes # 0.4 (0-1.0) k/uL Eosinophils # 0.1 (0-0.7) k/uL Basophils # 0.0 (0-0.2) k/uL Sodium 137 (137-145) mmol/L Potassium 4.0 (3.5-5.1) mmol/L Chloride 108 H (98-107) mmol/L Carbon Dioxide 24 (22-30) mmol/L Anion Gap 5 mmol/L BUN 12 (7-17) mg/dL Creatinine 0.90 (0.52-1.04) mg/dL Est GFR (CKD-EPI)AfAm >90 (>60 ml/min/1.73 sqM) Est GFR (CKD-EPI)NonAf 84 (>60 ml/min/1.73 sqM) Glucose 91 (74-99) mg/dL Calcium 9.2 (8.4-10.2) mg/dL Total Bilirubin 0.2 (0.2-1.3) mg/dL AST 22 (14-36) U/L ALT 28 (9-52) U/L Alkaline Phosphatase 48 (38-126) U/L Total Protein 7.0 (6.3-8.2) g/dL Albumin 4.2 (3.5-5.0) g/dL Amylase 54 (30-110) U/L Lipase 74 (23-300) U/L Urine Color Yellow Urine Appearance Clear (Clear) Urine pH 6.0 (5.0-8.0) Ur Specific [place] 1.026 (1.001-1.035) Urine Protein Trace H (Negative) Urine Glucose (UA) Negative (Negative) Urine Ketones Trace H (Negative) Urine Blood Negative (Negative) Urine Nitrite Negative (Negative) Urine Bilirubin Negative (Negative) Urine Urobilinogen 2.0 (<2.0) mg/dL Ur Leukocyte Esterase Negative (Negative) Disposition Clinical Impression: Urinary frequency, Abdominal pain Disposition: HOME SELF-CARE Condition: Good Instructions: Urinary Tract Infection in Women (ED) Additional Instructions: Please finish full course of Bactrim. Please follow up with primary care provider within 1-2 days. Return to emergency department if symptoms should worsen or any concerns arise. Is patient prescribed a controlled substance at d/c from ED?: No Referrals: John Wagoner DO [Primary Care Provider] - 1-2 days Time of Disposition: 17:05
[2018-04-03 16:30] LABS: Appearance,Urine Clear (Clear); Bilirubin,Urine Negative (Negative); Blood,Urine Negative (Negative); Color,Urine Yellow; Glucose,Urine (UA) Negative (Negative); Ketones,Urine Trace (Negative); Leukocyte Esterase,Urine Negative (Negative); Nitrite,Urine Negative (Negative); Protein,Urine Trace (Negative); Specific Gravity,Urine 1.026 (1.001-1.035)
[2018-04-03 16:48] LABS: Basophils % (A) 0 %; Eosinophils # (A) 0.1 k/uL (0-0.7); Eosinophils % (A) 1 %; HCT 37.3 % (34.0-46.0); HGB 12.7 gm/dL (11.4-16.0); Lymphocytes % (A) 30 %; MCH 31.9 pg (25.0-35.0); MCHC 33.9 g/dL (31.0-37.0); Mean Platelet Volume 7.5; Monocytes # (A) 0.4 k/uL (0-1.0); Monocytes % (A) 6 %; Neutrophils % (A) 61 %; Platelet Count 254 k/uL (150-450); RBC 3.97 m/uL (3.80-5.40); RDW 12.6 % (11.5-15.5); WBC 6.6 k/uL (3.8-10.6)
[2018-04-03 16:56] LABS: ALT 28 U/L (9-52); AST 22 U/L (14-36); Albumin 4.2 g/dL (3.5-5.0); Alkaline Phosphatase 48 U/L (38-126); Amylase 54 U/L (30-110); Anion Gap 5 mmol/L; Blood Urea Nitrogen 12 mg/dL (7-17); Calcium 9.2 mg/dL (8.4-10.2); Carbon Dioxide 24 mmol/L (22-30); Chloride 108 mmol/L (98-107); Glucose 91 mg/dL (74-99); Lipase 74 U/L (23-300); Sodium 137 mmol/L (137-145); Total Bilirubin 0.2 mg/dL (0.2-1.3)
[2018-04-03 17:20] VITALS: BP 116/58; PULSE 59
== END 2018-04-03 17:19 | disposition home or self-care (01) ==
LOC: EC 15:30
DX: R35.0 Frequency of micturition (principal); R10.9 Unspecified abdominal pain; R11.0 Nausea; R19.7 Diarrhea, unspecified; F17.200 Nicotine dependence, unspecified, uncomplicated; Z88.0 Allergy status to penicillin
CPT/HCPCS: 36415; 80053; 81003; 82150; 83690; 85025; 96360; 99284

== ENCOUNTER 2018-06-20 10:14 | Emergency (ER) | payer BC ==
[2018-06-20 10:28] VITALS: RESP 18
[2018-06-20] MEDS ORDERED: SODIUM CHLORIDE 0.9% 1,000 ML IV STA ×2 (10:45)
[2018-06-20] MEDS ORDERED: KETOROLAC 30 MG/ML 1 ML VIAL IVP STA (10:45)
--- NOTE | 2018-06-20 10:46 | ED ---
Abdominal Pain HPI - General Chief Complaint: Abdominal Pain Stated Complaint: poss Kidney infection Time Seen by Provider: 06/20/18 10:20 Source: patient, RN notes reviewed, old records reviewed Mode of arrival: ambulatory Limitations: no limitations - History of Present Illness Initial Comments: Patient is a 38-year-old female Patient is reportedly of lower abdominal pain and lower back pain.. Patient complains of dysuria. She states is worse in the right lower quadrant. Patient states that she's been having episodes of chills. She is concerned that she has a bladder or kidney infection. She states she's felt this way similarly. She states she's been having diffuse abdominal discomfort slight diarrhea. Surgical history includes partial hysterectomy. She reports urinary frequency and has been drinking a lot of cranberry juice. Patient denies any recent fever, chills, shortness of breath, chest pain, nausea vomiting, numbness or tingling, dysuria or hematuria, constipation or diarrhea, headaches or visual changes, or any other current symptoms. - Related Data Home Medications Medication Instructions Recorded Confirmed Ibuprofen [Motrin] 600 mg PO Q8HR PRN 06/20/18 06/20/18 Naproxen Sodium [Aleve] 440 mg PO DAILY PRN 06/20/18 06/20/18 Previous Rx's Medication Instructions Recorded Nitrofurantoin Monohyd/M-Cryst 100 mg PO Q12HR #14 cap 06/20/18 [Macrobid] Phenazopyridine [Pyridium] 100 mg PO TID #9 tablet 06/20/18 Allergies Allergy/AdvReac Type Severity Reaction Status Date / Time Penicillins Allergy Rash/Hives Verified 06/20/18 10:32 Review of Systems ROS Statement: Those systems with pertinent positive or pertinent negative responses have been documented in the HPI. ROS Other: All systems not noted in ROS Statement are negative. Past Medical History Past Medical History: Osteoarthritis (OA) Additional Past Medical History / Comment(s): states "enlarged uterus and precancerous cells present",urinary leakage,chronic back pain History of Any Multi-Drug Resistant Organisms: None Reported Past Surgical History: Hysterectomy, Orthopedic Surgery Additional Past Surgical History / Comment(s): MARYANA KNEE arthroscopy; D&C. 04/11 vaginal hysterectomy Past Anesthesia/Blood Transfusion Reactions: No Reported Reaction Past Psychological History: Anxiety, Depression Smoking Status: Current every day smoker Past Alcohol Use History: Rare Past Drug Use History: Marijuana - Past Family History Mother Family Medical History: No Reported History Father History Unknown: Yes General Exam - General Exam Comments Initial Comments: Pleasant 38-year-old female. No significant distress. Limitations: no limitations General appearance: alert, in no apparent distress Head exam: Present: atraumatic, normocephalic, normal inspection Eye exam: Present: normal appearance, PERRL, EOMI. Absent: scleral icterus, conjunctival injection, periorbital swelling ENT exam: Present: normal exam, mucous membranes moist Neck exam: Present: normal inspection. Absent: tenderness, meningismus, lymphadenopathy Respiratory exam: Present: normal lung sounds bilaterally Cardiovascular Exam: Present: regular rate, normal rhythm, normal heart sounds. Absent: systolic murmur, diastolic murmur, rubs, gallop, clicks GI/Abdominal exam: Present: soft, tenderness (Patient has tenderness over the right lower quadrant right upper quadrant region suprapubic area.), normal bowel sounds. Absent: distended, guarding, rebound, rigid Extremities exam: Present: normal inspection, full ROM, normal capillary refill. Absent: tenderness, pedal edema, joint swelling, calf tenderness Back exam: Present: normal inspection Neurological exam: Present: alert, oriented X3, CN II-XII intact Psychiatric exam: Present: normal affect, normal mood Course Vital Signs 06/20/18 10:24 Temperature 99.3 F Pulse Rate 99 Respiratory 18 Rate Blood Pressure 112/82 O2 Sat by Pulse 98 Oximetry Medical Decision Making - Medical Decision Making Patient is a 38-year-old female presents with with CC of dysuria, lower abdominal pain. Patient at this time has normal lab work. Urinalysis should children blood cells and white blood cells. She states that she did drinking a significant amount of cranberry juice. She states it seems like it was somewhat resolving. We will do urine culture. She does request STD testing on her urine. Does not want a pelvic exam at this time. Patient at this time will be discharged with prescription for Macrobid. Discussed following up with PCP. All questions answered return parameters were discussed. - Lab Data Result diagrams: 06/20/18 11:06 06/20/18 11:06 Lab Results 06/20/18 06/20/18 06/20/18 Range/Units 11:06 11:06 11:06 WBC 9.1 (3.8-10.6) k/uL RBC 4.42 (3.80-5.40) m/uL Hgb 14.0 (11.4-16.0) gm/dL Hct 41.7 (34.0-46.0) % MCV 94.3 (80.0-100.0) fL MCH 31.6 (25.0-35.0) pg MCHC 33.5 (31.0-37.0) g/dL RDW 12.6 (11.5-15.5) % Plt Count 305 (150-450) k/uL Neutrophils % 68 % Lymphocytes % 23 % Monocytes % 5 % Eosinophils % 3 % Basophils % 0 % Neutrophils # 6.2 (1.3-7.7) k/uL Lymphocytes # 2.1 (1.0-4.8) k/uL Monocytes # 0.5 (0-1.0) k/uL Eosinophils # 0.3 (0-0.7) k/uL Basophils # 0.0 (0-0.2) k/uL Sodium 139 (137-145) mmol/L Potassium 4.2 (3.5-5.1) mmol/L Chloride 110 H (98-107) mmol/L Carbon Dioxide 25 (22-30) mmol/L Anion Gap 4 mmol/L BUN 13 (7-17) mg/dL Creatinine 0.76 (0.52-1.04) mg/dL Est GFR (CKD-EPI)AfAm >90 (>60 ml/min/1.73 sqM) Est GFR (CKD-EPI)NonAf >90 (>60 ml/min/1.73 sqM) Glucose 84 (74-99) mg/dL Calcium 9.2 (8.4-10.2) mg/dL Total Bilirubin 0.7 (0.2-1.3) mg/dL AST 21 (14-36) U/L ALT 17 (9-52) U/L Alkaline Phosphatase 38 (38-126) U/L Total Protein 6.7 (6.3-8.2) g/dL Albumin 3.8 (3.5-5.0) g/dL Amylase 81 (30-110) U/L Lipase 92 (23-300) U/L Urine Color Yellow Urine Appearance Cloudy H (Clear) Urine pH 5.5 (5.0-8.0) Ur Specific [place] 1.026 (1.001-1.035) Urine Protein 1+ H (Negative) Urine Glucose (UA) Negative (Negative) Urine Ketones Trace H (Negative) Urine Blood Negative (Negative) Urine Nitrite Negative (Negative) Urine Bilirubin 1+ H (Negative) Urine Urobilinogen 3.0 (<2.0) mg/dL Ur Leukocyte Esterase Trace H (Negative) Urine RBC 8 H (0-5) /hpf Urine WBC 6 H (0-5) /hpf Ur Squamous Epith Cells 7 H (0-4) /hpf Urine Bacteria Rare H (None) /hpf Urine Mucus Many H (None) /hpf Disposition Clinical Impression: UTI (urinary tract infection) Disposition: HOME SELF-CARE Condition: Good Instructions: Urinary Tract Infection in Women (DC) Additional Instructions: Patient has a follow-up with primary care provider. Return to emergency department if any alarming signs or symptoms occur. Take the medication as prescribed. Prescriptions: Nitrofurantoin Monohyd/M-Cryst [Macrobid] 100 mg PO Q12HR #14 cap Phenazopyridine [Pyridium] 100 mg PO TID #9 tablet Is patient prescribed a controlled substance at d/c from ED?: No Referrals: John Wagoner DO [Primary Care Provider] - 1-2 days Time of Disposition: 12:34
[2018-06-20 11:19] LABS: Basophils % (A) 0 %; Eosinophils # (A) 0.3 k/uL (0-0.7); Eosinophils % (A) 3 %; HCT 41.7 % (34.0-46.0); Lymphocytes # (A) 2.1 k/uL (1.0-4.8); Lymphocytes % (A) 23 %; MCH 31.6 pg (25.0-35.0); MCHC 33.5 g/dL (31.0-37.0); MCV 94.3 fL (80.0-100.0); Mean Platelet Volume 6.8; Monocytes # (A) 0.5 k/uL (0-1.0); Monocytes % (A) 5 %; Neutrophils # (A) 6.2 k/uL (1.3-7.7); Neutrophils % (A) 68 %; Platelet Count 305 k/uL (150-450); RBC 4.42 m/uL (3.80-5.40); RDW 12.6 % (11.5-15.5); WBC 9.1 k/uL (3.8-10.6)
[2018-06-20 11:31] LABS: Appearance,Urine Cloudy (Clear); Bacteria,Urine Rare /hpf; Bilirubin,Urine 1+ (Negative); Blood,Urine Negative (Negative); Color,Urine Yellow; Glucose,Urine (UA) Negative (Negative); Ketones,Urine Trace (Negative); Leukocyte Esterase,Urine Trace (Negative); Mucus,Urine Many /hpf; Nitrite,Urine Negative (Negative); PH, Urine 5.5 (5.0-8.0); Protein,Urine 1+ (Negative); RBC,Urine 8 /hpf (0-5); Specific Gravity,Urine 1.026 (1.001-1.035); Squamous Epithelial Cell,Urine 7 /hpf (0-4); WBC,Urine 6 /hpf (0-5)
[2018-06-20 11:44] LABS: ALT 17 U/L (9-52); AST 21 U/L (14-36); Albumin 3.8 g/dL (3.5-5.0); Alkaline Phosphatase 38 U/L (38-126); Amylase 81 U/L (30-110); Anion Gap 4 mmol/L; Blood Urea Nitrogen 13 mg/dL (7-17); Calcium 9.2 mg/dL (8.4-10.2); Carbon Dioxide 25 mmol/L (22-30); Chloride 110 mmol/L (98-107); Glucose 84 mg/dL (74-99); Lipase 92 U/L (23-300); Potassium 4.2 mmol/L (3.5-5.1); Sodium 139 mmol/L (137-145); Total Bilirubin 0.7 mg/dL (0.2-1.3); Total Protein 6.7 g/dL (6.3-8.2)
[2018-06-20] MEDS ORDERED: NITROFURANTOIN MONOHYD/M-CRYST 100 MG CAP PO STA (12:31)
[2018-06-20 12:55] VITALS: BP 113/78; PULSE 67; TEMP 98
[2018-06-21 13:13] LABS: N. gonorrhoeae,PCR Negative (Neg,Equiv); Neisseria Source Urine
[2018-06-21 13:20] LABS: C. trachomatis,PCR Negative (Neg,Equiv); Chlamydia trachomatis Source Urine
== END 2018-06-20 12:55 | disposition home or self-care (01) ==
LOC: EC 10:14
DX: N39.0 Urinary tract infection, site not specified (principal); M19.90 Unspecified osteoarthritis, unspecified site; M54.5 Low back pain; G89.29 Other chronic pain; F17.200 Nicotine dependence, unspecified, uncomplicated; Z88.0 Allergy status to penicillin; Z79.1 Long term (current) use of non-steroidal anti-inflammatories (NSAID)
CPT/HCPCS: 99284; 96374; 96361 ×2; 36415; 80053; 82150; 83605; 83690; 85025; 81001; 87040; 87491; 87591; 87086; J1885

== ENCOUNTER → 2019-01-19 | Outpatient (CLI) | payer BC ==
--- NOTE | 2019-01-22 07:56 | MM ---
Reason for exam: screening (asymptomatic). Baseline mammogram. Physical Findings: Nurse did not find any significant physical abnormalities on exam. MG Screening Mammo w CAD Bilateral CC and MLO view(s) were taken. The breast tissue is heterogeneously dense. This may lower the sensitivity of mammography. These results were verbally communicated with the patient and result sheet given to the patient on 01/19/19. ASSESSMENT: Negative, BI-RAD 1 RECOMMENDATION: Routine screening mammogram of both breasts in 1 year.
== END | disposition home or self-care (01) ==
LOC: RADMAMWWP 15:32
PROVIDERS: ATTEND Obstetrics & Gynecology
DX: Z12.31 Encounter for screening mammogram for malignant neoplasm of breast (principal)
CPT/HCPCS: 77067

== ENCOUNTER → 2020-04-04 | Outpatient (CLI) | payer BC | END | disposition home or self-care (01) | LOC: LABWHC1 13:46 | PROVIDERS: ATTEND Emergency Medicine | DX: Z20.828 Contact with and (suspected) exposure to other viral communicable diseases (principal) | CPT/HCPCS: U0003; C9803 ==

== ENCOUNTER → 2023-05-19 | Outpatient (CLI) | payer BC ==
[2023-05-19 16:22] LABS: Basophils # (A) 0.05 X 10*3/uL (0.00-0.10); Basophils % (A) 0.5 %; Eosinophils # (A) 0.29 X 10*3/uL (0.04-0.35); Eosinophils % (A) 2.8 %; HCT 42.8 % (37.2-46.3); HGB 13.9 d/dL (12.0-15.0); Lymphocytes # (A) 2.74 X 10*3/uL (0.90-5.00); Lymphocytes % (A) 26.9 %; MCHC 32.5 d/dL (32.0-37.0); MCV 98.4 FL (80.0-97.0); Mean Platelet Volume 10.6 FL (9.5-12.2); Monocytes # (A) 0.74 X 10*3/uL (0.20-1.00); Monocytes % (A) 7.3 %; NRBC Per 100 WBC 0 X 10*3/uL (0.00-0.01); Neutrophils # (A) 6.36 X 10*3/uL (1.80-7.70); Neutrophils % (A) 62.3 %; Platelet Count 309 X 10*3/uL (140-440); RBC 4.35 X 10*6/uL (4.10-5.20)
[2023-05-19 16:51] LABS: ALT 15 U/L (8-44); AST 20 U/L (13-35); Albumin 4.5 d/dL (3.8-4.9); Albumin/Globulin Ratio 1.61 Ratio (1.60-3.17); Alkaline Phosphatase 72 U/L (41-126); Calcium 9.2 mg/dL (8.7-10.3); Carbon Dioxide 23.8 mmol/L (21.6-31.8); Chloride 104 mmol/L (96-109); Chol/HDL Ratio 4.78 Ratio; Globulin 2.8 d/dL (1.6-3.3); Glucose 80 mg/dL (70-110); LDL Cholesterol,Calculated 140.7 mg/dL (0.0-131.0); Potassium 4.8 mmol/L (3.5-5.5); Sodium 138 mmol/L (135-145); Total Bilirubin 0.4 mg/dL (0.3-1.2); Total Protein 7.3 d/dL (6.2-8.2)
== END | disposition home or self-care (01) ==
LOC: LABWHC1 07:35
PROVIDERS: ATTEND Family Medicine
DX: Z00.00 Encounter for general adult medical examination without abnormal findings (principal)
CPT/HCPCS: 36415; 80053; 80061; 82306; 84443; 85025

== ENCOUNTER → 2023-06-02 | Outpatient (CLI) | payer BC ==
--- NOTE | 2023-06-03 09:20 | MM ---
Reason for Exam: Screening (asymptomatic). Last mammogram was performed 4 year(s) and 4 month(s) ago. Patient History: Menarche at age 14. First Full-Term at age 19. Left ovary removed at age 37. Hysterectomy at age 37. Previous DCIS pathology result. Last menstrual period: Prior Study Comparison: 01/19/2019 Bilateral Screening Mammogram, [facility]. Tissue Density: The breast tissue is heterogeneously dense. This may lower the sensitivity of mammography. Findings: Analyzed By CAD. There is no suspicious group of microcalcifications or new suspicious mass in either breast. Benign calcifications. Overall Assessment: Benign, BI-RAD 2 Management: Screening Mammogram of both breasts in 1 year. . Patient should continue monthly self-breast exams. A clinical breast exam by your physician is recommended on an annual basis. This exam should not preclude additional follow-up of suspicious palpable abnormalities. Note on Willow scores and lifetime risk: 1. A Willow score greater than 3% is considered moderate risk. If this is the case, consider specialist referral to assess eligibility for a risk reducing agent. 2. If overall lifetime risk for the development of breast cancer is 20% or higher, the patient may qualify for future screening with alternating mammogram and breast MRI. Electronically signed and approved by: Flaco Hurd M.D. Radiologis
== END | disposition home or self-care (01) ==
LOC: RADMAMWWP 16:45
PROVIDERS: ATTEND Family Medicine
DX: Z12.31 Encounter for screening mammogram for malignant neoplasm of breast (principal)
CPT/HCPCS: 77063; 77067

== ENCOUNTER 2023-10-23 12:49 | Emergency (ER) | payer BC ==
[2023-10-23 13:08] VITALS: TEMP 98.2
--- NOTE | 2023-10-23 13:25 | ED ---
General Adult HPI - General Chief complaint: Chest Pain Stated complaint: Chest Discomfort from Cough Time Seen by Provider: 10/23/23 13:03 Source: patient, RN notes reviewed Mode of arrival: ambulatory Limitations: no limitations - History of Present Illness Initial comments: Patient is a pleasant 43-year-old female present to the emergency department with chest discomfort. Onset of symptoms was around 2 months ago. Symptoms worsened a week ago during a panic attack. Patient does have chronic cough, from smoking unchanged. Patient denies arm pain. Patient states there is a pulling sensation of the shoulder. No change of symptoms with doing stairs. Symptoms do increase with positional changes. - Related Data Home Medications Medication Instructions Recorded Confirmed Ibuprofen [Motrin] 600 mg PO Q8HR PRN 06/20/18 06/20/18 Naproxen Sodium [Aleve] 440 mg PO DAILY PRN 06/20/18 06/20/18 Previous Rx's Medication Instructions Recorded Nitrofurantoin Monohyd/M-Cryst 100 mg PO Q12HR #14 cap 06/20/18 [Macrobid] Phenazopyridine [Pyridium] 100 mg PO TID #9 tablet 06/20/18 Allergies Allergy/AdvReac Type Severity Reaction Status Date / Time Penicillins Allergy Rash/Hives Verified 06/20/18 10:32 Review of Systems ROS Statement: Those systems with pertinent positive or pertinent negative responses have been documented in the HPI. ROS Other: All systems not noted in ROS Statement are negative. Constitutional: Denies: fever Eyes: Denies: eye pain ENT: Denies: ear pain Respiratory: Reports: as per HPI Cardiovascular: Reports: as per HPI Gastrointestinal: Denies: abdominal pain Past Medical History Past Medical History: Osteoarthritis (OA), Thyroid Disorder Additional Past Medical History / Comment(s): states "enlarged uterus and precancerous cells present",urinary leakage,chronic back pain History of Any Multi-Drug Resistant Organisms: None Reported Past Surgical History: Hysterectomy, Orthopedic Surgery Additional Past Surgical History / Comment(s): MARYANA KNEE arthroscopy; D&C. 04/11/2017 vaginal hysterectomy Past Anesthesia/Blood Transfusion Reactions: No Reported Reaction Past Psychological History: Anxiety, Bipolar, Depression Past Alcohol Use History: Rare Past Drug Use History: Marijuana - Past Family History Mother Family Medical History: No Reported History Father History Unknown: Yes General Exam Limitations: no limitations General appearance: alert, in no apparent distress Head exam: Present: normocephalic Eye exam: Present: normal appearance Neck exam: Present: normal inspection Respiratory exam: Present: normal lung sounds bilaterally. Absent: chest wall tenderness Cardiovascular Exam: Present: regular rate, normal rhythm Expanded Peripheral pulses: 2+: Radial (R), Radial (L), Dorsalis Pedis (R), Dorsalis Pedis (L) GI/Abdominal exam: Present: soft. Absent: distended, tenderness Extremities exam: Present: normal inspection. Absent: pedal edema, calf tenderness Neurological exam: Present: alert Psychiatric exam: Present: normal affect, depressed Skin exam: Present: normal color Course Vital Signs 10/23/23 10/23/23 10/23/23 12:53 13:13 14:00 Temperature 98.2 F Pulse Rate 82 77 64 Respiratory 16 18 25 H Rate Blood Pressure 142/92 120/86 114/76 O2 Sat by Pulse 99 97 97 Oximetry 10/23/23 14:26 Temperature Pulse Rate 62 Respiratory 18 Rate Blood Pressure 109/72 O2 Sat by Pulse 96 Oximetry EKG Findings - EKG Results: EKG: interpreted by ERMD, sinus rhythm, normal axis, normal QRS, normal ST/T Medical Decision Making - Medical Decision Making Was pt. sent in by a medical professional or institution (, PA, ROLL EXAMINER, urgent care, hospital, or senior care...) When possible be specific @ -No Did you speak to anyone other than the patient for history (EMS, parent, family, police, friend...)? What history was obtained from this source @ -No Did you review nursing and triage notes (agree or disagree)? Why? @ -I reviewed and agree with nursing and triage notes Were old charts reviewed (outside hosp., previous admission, EMS record, old EKG, old radiological studies, urgent care reports/EKG's, senior care records)? Report findings @ -Previous chest x-ray reviewed Differential Diagnosis (chest pain, altered mental status, abdominal pain women, abdominal pain men, vaginal bleeding, weakness, fever, dyspnea, syncope, headache, dizziness, GI bleed, back pain, seizure, CVA, palpatations, mental health, musculoskeletal)? @ -Differential Chest Pain: Stable Angina, Unstable Angina, STEMI, NSTEMI Aortic Dissection, Pneumothorax, Musculoskeletal, Esophageal Spasm GERD, Cholecystitis, Pancreatitis, Zoster, this is not meant to be an all-inclusive list. EKG interpreted by me (3pts min.). @ -As above X-rays interpreted by me (1pt min.). @ -Chest x-ray shows no acute process CT interpreted by me (1pt min.). @ -None done U/S interpreted by me (1pt. min.). @ -None done What testing was considered but not performed or refused? (CT, X-rays, U/S, labs)? Why? @ -None What meds were considered but not given or refused? Why? @ -None Did you discuss the management of the patient with other professionals (professionals i.e. , PA, ROLL EXAMINER, lab, RT, psych nurse, manager social services, install technician, teacher, security officer supervisor, home health care case manager)? Give summary @ -No Was smoking cessation discussed for >3mins.? @ -No Was critical care preformed (if so, how long)? @ -No Were there social determinants of health that impacted care today? How? (Homelessness, low income, unemployed, alcoholism, drug addiction, transportation, low edu. Level, literacy, decrease access to med. care, residential, rehab)? @ -No Was there de-escalation of care discussed even if they declined (Discuss DNR or withdrawal of care, Hospice)? DNR status @ -No What co-morbidities impacted this encounter? (DM, HTN, Smoking, COPD, CAD, Cancer, CVA, ARF, Chemo, Hep., AIDS, mental health diagnosis, sleep apnea, m orbid obesity)? @ -None Was patient admitted / discharged? Hospital course, mention meds given and route, prescriptions, significant lab abnormalities, going to OR and other pertinent info. @ -Patient reevaluated and resting comfortably in bed. Patient is made aware of limitations and testing including delay in troponin. Patient has heart score of 1. Patient requesting discharge home. Patient denies any symptoms worsen the last few hours prior to arrival. Patient is felt to be low risk. Patient refuses repeat troponin but states she does have a appointment with her doctor tomorrow and will follow-up with that. Undiagnosed new problem with uncertain prognosis? @ -No Drug Therapy requiring intensive monitoring for toxicity (Heparin, Nitro, Insulin, Cardizem)? @ -No Were any procedures done? @ -No Diagnosis/symptom? @ -Chest pain Acute, or Chronic, or Acute on Chronic? @ -Acute Uncomplicated (without systemic symptoms) or Complicated (systemic symptoms)? @ -Default Side effects of treatment? @ -No Exacerbation, Progression, or Severe Exacerbation? @ -No Poses a threat to life or bodily function? How? (Chest pain, [place], [place], pneumonia, PE, COPD, DKA, ARF, appy, cholecystitis, CVA, Diverticulitis, Homicidal, Suicidal, threat to staff... and all critical care pts) @ -No - Lab Data Result diagrams: 10/23/23 13:24 10/23/23 13:24 Lab Results 10/23/23 10/23/23 10/23/23 Range/Units 13:24 13:24 13:24 WBC 9.7 (3.8-10.6) k/uL RBC 4.42 (3.80-5.40) m/uL Hgb 14.1 (11.4-16.0) gm/dL Hct 42.1 (34.0-46.0) % MCV 95.3 (80.0-100.0) fL MCH 32.0 (25.0-35.0) pg MCHC 33.6 (31.0-37.0) g/dL RDW 12.1 (11.5-15.5) % Plt Count 303 (150-450) k/uL MPV 8.2 Neutrophils % 65 % Lymphocytes % 28 % Monocytes % 4 % Eosinophils % 2 % Basophils % 0 % Neutrophils # 6.3 (1.3-7.7) k/uL Lymphocytes # 2.7 (1.0-4.8) k/uL Monocytes # 0.4 (0-1.0) k/uL Eosinophils # 0.2 (0-0.7) k/uL Basophils # 0.0 (0-0.2) k/uL PT 10.4 (10.0-12.5) sec INR 0.9 (<1.2) APTT 30.5 H (22.0-30.0) sec D-Dimer 0.33 (<0.60) mg/L FEU Sodium 139 (137-145) mmol/L Potassium 3.6 (3.5-5.1) mmol/L Chloride 112 H (98-107) mmol/L Carbon Dioxide 21 L (22-30) mmol/L Anion Gap 6 mmol/L BUN 10 (7-17) mg/dL Creatinine 0.81 (0.52-1.04) mg/dL Est GFR (CKD-EPI)AfAm >90 (>60 ml/min/1.73 sqM) Est GFR (CKD-EPI)NonAf >90 (>60 ml/min/1.73 sqM) Glucose 94 (74-99) mg/dL Calcium 9.1 (8.4-10.2) mg/dL Magnesium 1.8 (1.6-2.3) mg/dL Total Bilirubin 0.6 (0.2-1.3) mg/dL AST 18 (14-36) U/L ALT 11 (4-34) U/L Alkaline Phosphatase 76 (38-126) U/L Troponin I (0.000-0.034) ng/mL Total Protein 7.2 (6.3-8.2) g/dL Albumin 4.0 (3.5-5.0) g/dL 10/23/23 Range/Units 13:24 WBC (3.8-10.6) k/uL RBC (3.80-5.40) m/uL Hgb (11.4-16.0) gm/dL Hct (34.0-46.0) % MCV (80.0-100.0) fL MCH (25.0-35.0) pg MCHC (31.0-37.0) g/dL RDW (11.5-15.5) % Plt Count (150-450) k/uL MPV Neutrophils % % Lymphocytes % % Monocytes % % Eosinophils % % Basophils % % Neutrophils # (1.3-7.7) k/uL Lymphocytes # (1.0-4.8) k/uL Monocytes # (0-1.0) k/uL Eosinophils # (0-0.7) k/uL Basophils # (0-0.2) k/uL PT (10.0-12.5) sec INR (<1.2) APTT (22.0-30.0) sec D-Dimer (<0.60) mg/L FEU Sodium (137-145) mmol/L Potassium (3.5-5.1) mmol/L Chloride (98-107) mmol/L Carbon Dioxide (22-30) mmol/L Anion Gap mmol/L BUN (7-17) mg/dL Creatinine (0.52-1.04) mg/dL Est GFR (CKD-EPI)AfAm (>60 ml/min/1.73 sqM) Est GFR (CKD-EPI)NonAf (>60 ml/min/1.73 sqM) Glucose (74-99) mg/dL Calcium (8.4-10.2) mg/dL Magnesium (1.6-2.3) mg/dL Total Bilirubin (0.2-1.3) mg/dL AST (14-36) U/L ALT (4-34) U/L Alkaline Phosphatase (38-126) U/L Troponin I <0.012 (0.000-0.034) ng/mL Total Protein (6.3-8.2) g/dL Albumin (3.5-5.0) g/dL Disposition Clinical Impression: Chest pain Disposition: HOME SELF-CARE Condition: Stable Instructions (If sedation given, give patient instructions): Chest Pain (ED) Additional Instructions: Please follow-up with your doctor tomorrow as planned. Return for increased pain, difficulty breathing, worsening or changing symptoms or any other concerns . Is patient prescribed a controlled substance at d/c from ED?: No Referrals: Carlos Moore MD [Primary Care Provider] - 1-2 days Time of Disposition: 14:46
[2023-10-23 13:33] LABS: Basophils % (A) 0 %; Eosinophils # (A) 0.2 k/uL (0-0.7); Eosinophils % (A) 2 %; HCT 42.1 % (34.0-46.0); HGB 14.1 gm/dL (11.4-16.0); Lymphocytes # (A) 2.7 k/uL (1.0-4.8); Lymphocytes % (A) 28 %; MCHC 33.6 g/dL (31.0-37.0); MCV 95.3 fL (80.0-100.0); Mean Platelet Volume 8.2; Monocytes # (A) 0.4 k/uL (0-1.0); Monocytes % (A) 4 %; Neutrophils # (A) 6.3 k/uL (1.3-7.7); Neutrophils % (A) 65 %; Platelet Count 303 k/uL (150-450); RBC 4.42 m/uL (3.80-5.40); RDW 12.1 % (11.5-15.5); WBC 9.7 k/uL (3.8-10.6)
[2023-10-23 13:39] VITALS: RESP 18
[2023-10-23] MEDS: NITROGLYCERIN SL TABS 0.4 MG TAB SUBLINGUAL STA ×3 (13:39→15:00)
[2023-10-23] MEDS: ASPIRIN 81 MG PO STA (13:39)
[2023-10-23 13:45] LABS: ALT 11 U/L (4-34); AST 18 U/L (14-36); African American GFR (CKD) >90 (>60 ml/min/1.73 sqM); Alkaline Phosphatase 76 U/L (38-126); Anion Gap 6 mmol/L; Blood Urea Nitrogen 10 mg/dL (7-17); Calcium 9.1 mg/dL (8.4-10.2); Carbon Dioxide 21 mmol/L (22-30); Chloride 112 mmol/L (98-107); Glucose 94 mg/dL (74-99); Magnesium 1.8 mg/dL (1.6-2.3); Non-African American GFR(CKD) >90 (>60 ml/min/1.73 sqM); Potassium 3.6 mmol/L (3.5-5.1); Sodium 139 mmol/L (137-145); Total Bilirubin 0.6 mg/dL (0.2-1.3); Total Protein 7.2 g/dL (6.3-8.2)
[2023-10-23 13:47] LABS: INR 0.9 (<1.2); Partial Thromboplastin Time 30.5 sec (22.0-30.0); Prothrombin Time 10.4 sec (10.0-12.5)
--- NOTE | 2023-10-23 14:01 | XR ---
EXAMINATION TYPE: XR chest 2V DATE OF EXAM: 10/23/2023 COMPARISON: 04/12/2017 HISTORY: Chest pain TECHNIQUE: Frontal and lateral views of the chest are obtained. FINDINGS: There is no focal air space opacity, pleural effusion, or pneumothorax seen. The cardiac silhouette size is within normal limits. The osseous structures are intact. IMPRESSION: No acute cardiopulmonary process.
[2023-10-23 14:36] VITALS: BP 109/72; PULSE 62
== END 2023-10-23 15:10 | disposition home or self-care (01) ==
LOC: EC 12:49
DX: R07.89 Other chest pain (principal); F12.90 Cannabis use, unspecified, uncomplicated; Z86.59 Personal history of other mental and behavioral disorders; Z88.0 Allergy status to penicillin
CPT/HCPCS: 36415; 71046; 80053; 83735; 84484; 85025; 85379; 85610; 85730; 93005; 99285

== ENCOUNTER → 2024-03-26 | Outpatient (CLI) | payer BC ==
--- NOTE | 2024-03-27 10:47 | XR ---
EXAMINATION TYPE: XR foot complete bilateral DATE OF EXAM: 03/26/2024 Comparison: None TECHNIQUE: 3 views each side Clinical History: 43-year-old female M79.671 PAIN IN RIGHT FOOT M79.672 PAIN IN LEFT FO Findings: No acute fracture, subluxation, or dislocation seen. Joint spaces are maintained. Small delineation t o the Achilles tendons. Subtalar joints are aligned. Impression: No acute osseous abnormality seen on either side.
== END | disposition home or self-care (01) ==
LOC: RADXRMAIN 16:03
PROVIDERS: ATTEND Family Medicine
DX: M79.671 Pain in right foot (principal); M79.672 Pain in left foot